=== PATIENT | male | born 1960 | race Caucasian/White ===

== ENCOUNTER 2016-08-11 11:54 | Emergency (ER) | payer OTHER ==
--- NOTE | ~2016-08-11 | EKG ---
PATIENT: THOMAS MARES UNIT #: [id number] Ventricular Rate: 52 BPM Atrial Rate: 52 BPM P-R Interval: 192 ms QRS Duration: 96 ms Q-T Interval: 446 ms QTC Calculation(Bezet): 414 ms P [place]: 47 degrees Calculated R [place]: -10 degrees Calculated T [place]: 27 degrees Diagnosis Line: Sinus bradycardia with sinus arrhythmia Diagnosis Line: Otherwise normal ECG Diagnosis Line: Diagnosis Line: Confirmed by GILBERTO TALBERT MD ([id number]) on Diagnosis Line: 08/11/2016 4:16:02 PM INTERPRETING MD: GALI JAIMES
[~2016-08-11 11:54] MED LIST: ALPRAZOLAM PO; AMBIEN; AMBIEN10 MG PO; BACITRACIN30 GM TOP; BP MED; BP MEDS; DYAZIDE 371 CAP 37.5 PO; FLEXERIL10 MG PO; HYDROCODON-ACE1 EAC5 PO; LIBRAX1 CAP 5/2. PO; LORTAB 10-5001 EACH PO; LORTAB 10/500 T1 TAB PO; MOBIC PO; PRILOSEC20 MG PO; ULTRAM PO; VICODIN; VICODIN 5/500 T1 TAB PO; ZITHROMAX PO; [UNRECOGNIZED DRUG - OTHER]; [UNRECOGNIZED DRUG - OTHER]; [UNRECOGNIZED DRUG - OTHER]
[2016-08-11 12:44] LABS: POC - CKMB 1.7 ng/mL (0.0-7.9); POC - TROPONIN <0.05 ng/mL (<=0.05)
[2016-08-11 12:51] LABS: HEMATOCRIT 39.3 % (38.0-50.0); HEMOGLOBIN 13.3 gm/dL (13.0-16.0); LYMPHOCYTE# 0.7 X10e3 (1.0-3.5); LYMPHOCYTE% 8.2 % (17.0-45.0); MEAN CORPUSCULAR HEMOGLOBIN 30.7 PG (28-34); MEAN CORPUSCULAR HGB CONC 33.7 g/dL (30-36); MONOCYTE# 0.5 X10e3 (0-1.0); MONOCYTE% 5.6 % (3.0-12.0); NEUTROPHIL# 7.7 X10e3 (1.5-7.1); NEUTROPHIL% 86.2 % (40-75); PLATELET COUNT 74 X10e3 (140-420); RED BLOOD COUNT 4.32 X10e (3.90-5.60); RED CELL DISTRIBUTION WIDTH 16.7 % (11.0-15.5); WHITE BLOOD COUNT 8.9 X10e3 (4.0-10.5)
[2016-08-11 12:52] LABS: DIFF IND YES
[2016-08-11 12:53] LABS: BLOOD UREA NITROGEN 25 mg/dL (9-23); BUN/CREATININE RATIO 35.71; CALCIUM SERUM 9.4 mg/dL (8.4-10.2); CARBON DIOXIDE 28 mmol/L (22-31); CHLORIDE 102 mmol/L (100-111); CREATININE SERUM 0.7 mg/dL (0.6-1.4); GLOM FILT RATE Estimated ABOVE60 mL/min (>60); GLUCOSE FASTING 106 mg/dL (70-110); POTASSIUM 4.5 mmol/L (3.5-5.1); SODIUM 137 mmol/L (135-145)
[2016-08-11 13:32] LABS: ANISOCYTOSIS SL; NUCLEATED RED BLOOD CELL 1 /100 (0); PLATELET ESTIMATE DECREASED (NORMAL); POIKILOCYTOSIS SL; RBC NORMAL YES
[2016-08-11 13:33] LABS: OVALOCYTES PRESENT
== END 2016-08-11 14:30 | disposition home or self-care (01) ==
LOC: CED 11:54
PROVIDERS: Emergency Medicine
DX: R40.0 Somnolence (principal); T50.905A Adverse effect of unspecified drugs, medicaments and biological substances, initial encounter
CPT/HCPCS: 36415; 80048; 82553; 84484; 85025; 93005; 99283

== ENCOUNTER 2017-02-09 08:14 | Emergency (ER) | payer OTHER ==
[~2017-02-09] VITALS: Ht 175.3 cm; Wt 68.0 kg
== END 2017-02-09 09:30 | disposition home or self-care (01) ==
LOC: CED 08:14
DX: J06.9 Acute upper respiratory infection, unspecified (principal); I10 Essential (primary) hypertension
CPT/HCPCS: 87651; 99283